=== PATIENT | female | born 1995 | race Caucasian/White ===

== ENCOUNTER 2019-07-26 09:42 | Emergency (ER) | payer OTHER, SELFPAY ==
[2019-07-26 09:49] VITALS: BP 105/70; PULSE 16; RESP 16; TEMP 36.4; O2SAT 98
--- NOTE | 2019-07-26 10:19 | ED.EAR ---
HPI - Ear Problem General Chief complaint: Ear Stated complaint: PAIN TO BACK OF EAR/JAW PAIN Time Seen by Provider: 07/26/19 10:20 Source: patient and RN notes reviewed Mode of arrival: ambulatory Limitations: no limitations History of Present Illness HPI Narrative: 24 old female presents with concern for 1 day history of left ear pain that occasionally radiates down her jaw. Reports taking Advil that improves the pain. Denies any trauma, injury. Reports recent runny nose, nasal congestion. Denies decreased hearing, discharge from the ear MD Complaint: ear pain Related Data Allergies Allergy/AdvReac Type Severity Reaction Status Date / Time No Known Allergies Allergy Unverified 04/24/11 18:06 Review of Systems Review of Systems: Narrative: CONSTITUTIONAL: Denies malaise, chills, sweats, or fever. EYES: Denies visual changes, redness, or discharge. ENT: Denies rhinorrhea, congestion, sinus pain, or sore throat. Reports left ear pain radiating to the jaw. Denies popping or clicking of the jaw, pain with chewing CARDIOVASCULAR: Denies chest pain, palpitations RESPIRATORY: Denies cough or dyspnea. SKIN: Denies rash or itching. NEUROLOGIC: Denies numbness, weakness, or headache. All systems reviewed & are unremarkable except as noted in HPI and below PMFSH Comments At time of signature, agree with nursing past medical, surgical, social and family history. There is no relevant family history pertinent to the presenting complaint Exam Narrative: Exam Narrative: GENERAL: Well-appearing, well-nourished, and in no acute distress. HEAD: Normocephalic EYES: PERRLA, conjunctivae clear ENT: Nares clear, turbinates erythematous, clear discharge. Mucous membranes moist. TM pearly gibbs with dull light reflex bilaterally; no tragal tenderness. Oropharynx not erythematous without lesions. Tonsils not enlarged and without exudate, no drooling, no hoarseness, no trismus. NECK: Supple. No lymphadenopathy CHEST: Clear to auscultation, breath sounds equal. No wheezing, rhonchi, rales, or stridor. No respiratory distress, speaks in full sentences. HEART: Regular rate and rhythm. No murmur heard. Normal peripheral pulses. SKIN: Warm, dry, no rash. NEURO: Alert and oriented x3. PSYCH: Normal mood and affect Course Course Emergency Course: Patient is aware of diagnosis, understands and agrees to treatment plan. Anticipatory guidance given. Patient agrees to follow-up as directed and is aware of reasons to seek care at the emergency department. Portions of this record may have been created with voice recognition software Vital Signs Vital signs: Vital Signs Temperature 97.6 F 07/26/19 09:49 Pulse Rate 16 L 07/26/19 09:49 Respiratory Rate 16 07/26/19 09:49 Blood Pressure 105/70 07/26/19 09:49 Pulse Oximetry 98 07/26/19 09:49 Temperature 97.6 F 07/26/19 09:49 Pulse Rate 16 L 07/26/19 09:49 Respiratory Rate 16 07/26/19 09:49 Blood Pressure 105/70 07/26/19 09:49 Pulse Oximetry 98 07/26/19 09:49 Reviewed. Medical Decision Making MDM Narrative Medical decision making narrative: Differential diagnosis considered: TMJ, lymphadenopathy, strep pharyngitis, allergic rhinitis, upper respiratory tract infection, sinusitis, rhinosinusitis, nasopharyngitis. viral pharyngitis, otitis media, otitis externa, pneumonia, bronchitis, viral cough syndrome, viral syndrome, and influenza. Exam findings show no acute concerns or changes; patient is non-toxic appearing and is in no distress. Patient is appropriate for outpatient treatment and follow-up. Vital Signs Vital Signs: Vital Signs Temperature 97.6 F 07/26/19 09:49 Pulse Rate 16 L 07/26/19 09:49 Respiratory Rate 16 07/26/19 09:49 Blood Pressure 105/70 07/26/19 09:49 Pulse Oximetry 98 07/26/19 09:49 Temperature 97.6 F 07/26/19 09:49 Pulse Rate 16 L 07/26/19 09:49 Respiratory Rate 16 07/26/19 09:49 Blood Pressure 105/70 07/26/19 09:49
== END 2019-07-26 10:30 | disposition home or self-care (01) ==
PROVIDERS: Emergency Provider Nurse Practitioner; PCP Family Medicine
DX: H92.02 Otalgia, left ear (principal)
CPT/HCPCS: 99203; G0463

== ENCOUNTER 2019-08-10 14:16 | Emergency (ER) | payer OTHER, SELFPAY ==
[2019-08-10 14:28] VITALS: BP 116/74; PULSE 78; RESP 20; TEMP 36.5; O2SAT 99
--- NOTE | 2019-08-10 15:10 | ED.GENADULT ---
HPI - General Adult General Chief complaint: Ear Stated complaint: Ear pain Time Seen by Provider: 08/10/19 15:10 Source: patient and RN notes reviewed Mode of arrival: ambulatory Limitations: no limitations History of Present Illness HPI narrative: 24-year-old female presents with complaints of right ear itching and pain for 1 day. [id number] ear pain drops and Ibuprofen without relief. Pam says about 18:00 last night she had a ripping sound in RT ear and approximately 2 hours later start having pain. Denies drainage from RT ear, swimming, or getting water into ear. Denies trouble hearing. Denies URI symptoms. No high fevers or chills. Denies injury to the ear. No nasal drainage and congestion. Denies nausea, vomiting, tinnitus, syncopal episodes, and dizziness. Remains active. Pam denies being , LMP 2 weeks ago. Some parts of this dictation were generated by voice recognition software and may contain typographical and/or grammatical inaccuracies. Related Data Home Medications Medication Instructions Recorded Confirmed ibuprofen 200 mg PO Q6H PRN 08/10/19 08/10/19 Allergies Allergy/AdvReac Type Severity Reaction Status Date / Time No Known Allergies Allergy Verified 08/10/19 14:32 Review of Systems Review of Systems: Narrative: CONSTITUTIONAL: Denies fever, chills, sweats. EYES: Denies visual changes, redness, discharge. ENT: Denies rhinorrhea, congestion, sore throat, drainage. Complains of RT otalgia, itching. CARDIOVASCULAR: Denies chest pain, palpitations, edema. RESPIRATORY: Denies dyspnea, wheezing, cough. GASTROINTESTINAL: Denies abdominal pain, nausea, vomiting, diarrhea. GENITOURINARY: Denies dysuria, hematuria, abnormal discharge. SKIN: Denies rash or itching. MUSCULOSKELETAL: Denies acute back pain, joint pain, or myalgia. NEUROLOGIC: Denies numbness or focal weakness. PSYCHIATRIC: Denies anxiety or depression. All systems reviewed & are unremarkable except as noted in HPI and below. [facility] Past Medical History Medical History (Updated 08/11/19 @ 00:01 by Shanta Duffy) No significant medical problems Surgical History Surgical History (Updated 08/10/19 @ 15:21 by MONCHO Ortiz) No significant past surgical history Family History Family History (Updated 08/10/19 @ 15:22 by MONCHO Ortiz) Father Hypertension Mother Hypertension Social History Social History (Updated 08/10/19 @ 15:22 by MONCHO Ortiz) Smoking status: Never smoker Second hand tobacco smoke exposure: No Alcohol intake: never Substance use: never Living arrangements: with family Occupation/Education: occupation Gender identity (if verbalized by the patient): Female Comments At time of signature, I have reviewed and agree with nursing past medical, surgical, social, and family history. Please see nursing chart for further information. There is no relevant family history pertinent to the presenting complaint. Exam Narrative: Exam Narrative: GENERAL: This is a well-nourished, well-developed patient, in no apparent distress. Talks in full sentences and ambulates with steady gait without dyspnea HEAD: normocephalic, atraumatic. EYES: PERRL. Sclera clear/white. Vision is grossly intact. EARS: Pinna is normal shape and contour. RT ear with moderate erythema and swelling canal with moderate yellow purulent discharge and tenderness with manipulation. Clear external auditory canals. LT TM pearly keller with good cone of light, no erythema or suppuration, unable to visualize RT due to swelling and drainage. No gross hearing deficit. NOSE: External nose normal with no obvious nasal discharge, nares with mild redness and enlarge turbinates, no rhinorrhea. THROAT: Mucous membranes moist, posterior pharynx clear. NECK: Neck supple, non-tender without lymphadenopathy, masses or thyromegaly. CARDIOVASCULAR: Regular rate and rhythm without murmurs, gallops, or r
== END 2019-08-10 15:30 | disposition home or self-care (01) ==
PROVIDERS: Emergency Provider Nurse Practitioner Family; PCP Family Medicine
DX: H60.501 Unspecified acute noninfective otitis externa, right ear (principal)
CPT/HCPCS: 99213; G0463

== ENCOUNTER 2019-12-02 16:25 | Emergency (ER) | payer OTHER, SELFPAY ==
--- NOTE | ~2019-12-02 | CT_ITS ---
EXAMINATION: CT facial bones w con DATE: 12/02/2019 17:26 INDICATION: Right jaw swelling TECHNIQUE: Computed tomography (CT) of the facial bones and maxillofacial region was performed with 7 5 cc of Omnipaque 350 intravenous contrast intravenous contrast. The dose-length product (DLP) was 37 2.36 mGy-cm. Automated exposure control and iterative reconstruction technique were employed. COMPARISON: None. FINDINGS: There is soft tissue swelling of the right face adjacent to the mandible. There is mild inc rease in size of the right submandibular gland compared to the left. Also seen is slight increase in size of nonpathologically enlarged right submandibular lymph nodes compared to the left. No focal flu id collection or phlegmon is identified. The vascular structures are unremarkable. No facial bone fra cture is identified. There are dental caries of the bilateral first mandibular molars. The airway is patent. Three cysts noted bilaterally in the globes. IMPRESSION: 1. Asymmetric right facial soft tissue swelling near the mandible, without evidence of abscess or phl egmon, possibly related to cavity of the first molar. Reviewed, dictated and finalized at location A. IMPRESSION: 1. Asymmetric right facial soft tissue swelling near the mandible, without evid ence of abscess or phlegmon, possibly related to cavity of the first molar.
[2019-12-02 16:35] VITALS: BP 140/74; PULSE 80; RESP 18; TEMP 36.8; O2SAT 98
--- NOTE | 2019-12-02 16:42 | ED.GENADULT ---
HPI - General Adult General Chief complaint: Dental/Oral Stated complaint: swelling to right lower jaw Time Seen by Provider: 12/02/19 16:37 Source: patient Mode of arrival: ambulatory Limitations: no limitations History of Present Illness HPI narrative: 24-year-old female patient presents to the [facility] with complaints of dental pain to the right side. Patient states that swelling started this morning when she woke up. Patient states she has been having issues with some bad teeth for couple months now and is having difficulty finding a dentist/oral surgeon to see. Patient states that she has been taking Tylenol for the pain which has helped. Patient rates her pain 5 out of 10 at this time. Denies any fevers that she is aware of. Denies any chest pain or shortness of breath. Patient denies any or breast-feeding at this time. Related Data Allergies Allergy/AdvReac Type Severity Reaction Status Date / Time No Known Allergies Allergy Verified 12/02/19 16:39 Review of Systems Review of Systems: Narrative: CONSTITUTIONAL: Denies fever, chills, or sweats. EYES: Denies visual changes, redness, or discharge. ENT: Denies rhinorrhea, congestion, sore throat, or otalgia. Positive swelling to right jaw and cheek area since this morning CARDIOVASCULAR: Denies chest pain, palpitations, or edema. RESPIRATORY: Denies cough or dyspnea. GASTROINTESTINAL: Denies abdominal pain, nausea, vomiting, or diarrhea. GENITOURINARY: Denies dysuria or hematuria. SKIN: Denies rash or itching. MUSCULOSKELETAL: Denies back pain, joint pain, or myalgia. NEUROLOGIC: Denies headache, numbness, or weakness. PSYCHIATRIC: Denies anxiety or depression. [facility] Past Medical History Medical History No significant medical problems Surgical History Surgical History No significant past surgical history Family History Family History Father Hypertension Mother Hypertension Social History Social History Smoking status: Never smoker Second hand tobacco smoke exposure: No Alcohol intake: never Substance use: never Gender identity (if verbalized by the patient): Female Comments At the time of my signature I agree with nursing past medical history, surgical, social, and family history. There is no relevant family history pertinent to the presenting complaint. Exam Narrative: Exam Narrative: GENERAL: Well-appearing, well-nourished, and in no acute distress. HEAD: Normocephalic, atraumatic. EYES: PERRLA and EOMI. ENT: Nares clear, no rhinorrhea or epistaxis. Mucous membranes moist. Patient has swelling noted to the right mandibular area with warmth noted and erythema. There is a broken tooth noted to the lower right molar. There is erythema noted to the gum and palpitation of hardness possible abscess area into the soft tissue area. NECK: Supple. No lymphadenopathy CHEST: Clear to auscultation. No respiratory distress. HEART: Regular rate and rhythm. No murmur heard. Normal peripheral pulses. ABDOMEN: Soft, nontender, nondistended, normal active bowel sounds. EXTREMITIES: Normal range of motion. No edema. SKIN: Warm, dry, no rash. NEURO: No focal deficits. Alert and oriented x3. Course Reevaluation(s) Reevaluation #1: Reevaluated patient after her CT. Discussed with her that the CT does not show any evidence of osteomyelitis to the jaw or an abscess. Discussed with her this most likely swelling due to the infection in the tooth. Discussed with her we will discharge her home with antibiotics and give her dose of antibiotics before she leaves. Discussed with her I will also give her some tramadol to help with the pain. Discussed with her we will give her resources for follow-up of dental clinics. Patient is aware the p
[2019-12-02 17:08] LABS: Basophils Absolute Auto 0.1 K/mm3 (0.0-0.1); Basophils Percent Auto 0.5 % (0.2-1.2); Eosinophils Percent Auto 0.3 % (0-4.4); Hematocrit 41.9 % (37.0-47.0); Hemoglobin 14.1 g/dL (12.0-15.0); Immature Granulocyte Absolute 0.01 K/mm3 (0.00-0.031); Immature Granulocyte Percent A 0.1 % (0-0.5); Lymphocytes Percent Auto 25.3 % (18.3-44.2); Mean Corpuscular HGB Conc 33.7 g/dl (32-36); Mean Corpuscular Hemoglobin 28.4 pg (26-34); Mean Corpuscular Volume 84.5 fl (80-100); Mean Platelet Volume 11.1 fl (7.4-10.4); Monocytes Absolute Auto 0.5 K/mm3 (0.1-0.6); Monocytes Percent Auto 4.7 % (2.6-8.5); Neutrophils Absolute Auto 6.6 K/mm3 (1.3-6.7); Neutrophils Percent Auto 69.1 % (45.5-73.1); Platelet Count Result 195 k/mm3 (150-375); Red Blood Count 4.96 M/mm3 (4.2-5.4); Red Cell Distribution Width 12.4 % (11.5-14.5); White Blood Count 9.5 K/mm3 (4.5-10.0)
[2019-12-02] MEDS: KETOROLAC 30 MG/ML VIAL (*BKC) IV PUSH (17:12)
[2019-12-02] MEDS: SODIUM CHLORIDE 0.9% IV 1,000 ML 999 ML IV CONT (17:12)
[2019-12-02 17:20] LABS: Alanine Aminotransferase 17 U/L (4-35); Albumin Level 4.6 g/dL (3.5-5.1); Alkaline Phosphatase 64 U/L (38-126); Aspartate Amino Transferase 23 U/L (14-36); Bilirubin,Total 0.3 mg/dL (0.2-1.3); Blood Urea Nitrogen 9 mg/dL (7-17); Calcium 8.9 mg/dL (8.4-10.2); Carbon Dioxide 24 mmol/L (22-30); Chloride 106 mmol/L (98-107); Estimated CRCL calculation 143 ml/min; Estimated Glomerular Filt Rate > 60; Glucose 87 mg/dL (65-105); Potassium 3.6 mmol/L (3.4-5.0); Sodium 139 mmol/L (137-145)
[2019-12-02 17:22] LABS: Estimated CRCL calculation 143 ml/min; Estimated Glomerular Filt Rate > 60
[2019-12-02 17:55] VITALS: BP 130/60; PULSE 74; RESP 18; O2SAT 100
[2019-12-02] MEDS: AMOXICILLIN/CLAVULANATE K 875-125 MG TAB 1 TABLET PO (18:25)
== END 2019-12-02 18:30 | disposition home or self-care (01) ==
PROVIDERS: Emergency Provider Nurse Practitioner Family; PCP Family Medicine
DX: K02.9 Dental caries, unspecified (principal); R03.0 Elevated blood-pressure reading, without diagnosis of hypertension
CPT/HCPCS: 36415; 70487; 80053; 85025; 96361; 96374; 99284; A9270; J1885; J7030; Q9967

== ENCOUNTER 2020-12-23 15:39 | Emergency (ER) | payer OTHER, SELFPAY ==
--- NOTE | ~2020-12-23 | XR_ITS ---
XR ankle LT min 3V DATE: 12/23/2020 15:54 INDICATION: Fall down 4-5 steps. Lateral ankle pain. TECHNIQUE: 4 views COMPARISON: None FINDINGS: Mild plantar and posterior calcaneal enthesopathy. No fracture or dislocation of the ankle or disruption of the ankle mortise. No periosteal reaction or bone destruction. IMPRESSION: No fracture or dislocation Reviewed, dictated and finalized at location A. IMPRESSION: No fracture or dislocation
[2020-12-23 15:41] VITALS: BP 124/69; PULSE 79; RESP 16; TEMP 37.1; O2SAT 99
[2020-12-23 16:41] VITALS: BP 109/69; PULSE 82; RESP 16; O2SAT 97
--- NOTE | 2020-12-23 17:32 | ED.LOWEXIN ---
HPI - Extremity Injury (Lower) General Chief Complaint: Extremity Injury, Lower Stated Complaint: left ankle injury Time Seen by Provider: 12/23/20 16:41 Source: patient Mode of arrival: ambulatory Limitations: no limitations History of Present Illness HPI Narrative: Patient is a 25 year old female who reports she slipped down multiple steps this afternoon, injuring left ankle. She denies fall, denies all other complaints. Mild swelling noted at left ankle. Patient ambulates without assistance. She denies significant medical history, denies taking otc medications prior to arrival. MD complaint: leg injury Related Data Allergies Allergy/AdvReac Type Severity Reaction Status Date / Time No Known Allergies Allergy Verified 12/02/19 16:39 Review of Systems Review of Systems: Narrative: CONSTITUTIONAL: Denies fever, chills, or sweats. EYES: Denies visual changes, redness, or discharge. ENT: Denies rhinorrhea, congestion, sore throat, or otalgia. CARDIOVASCULAR: Denies chest pain, palpitations, or edema. RESPIRATORY: Denies cough or dyspnea. GASTROINTESTINAL: Denies abdominal pain, nausea, vomiting, or diarrhea. GENITOURINARY: Denies dysuria or hematuria. SKIN: Denies rash or itching. MUSCULOSKELETAL: Reports left ankle pain NEUROLOGIC: Denies headache, numbness, dizziness, or weakness. PSYCHIATRIC: Denies anxiety or depression. PMFSH Past Medical History Medical History (Updated 12/23/20 @ 17:40 by MONCHO Valdovinos) No significant medical problems Surgical History Surgical History No significant past surgical history Family History Family History Father Hypertension Mother Hypertension Social History Social History Smoking status: Never smoker Second hand tobacco smoke exposure: No Alcohol intake: never Substance use: never Gender identity (if verbalized by the patient): Female Comments At the time of signature, I have reviewed and agree with nursing past medical, surgical, social, and family history unless otherwise noted. Please see nursing chart for further information. There is no relevant family history pertinent to the presenting complaint. Exam Narrative: Exam Narrative: GENERAL: Well-appearing, well-nourished, and in no acute distress. HEAD: Normocephalic, atraumatic. EYES: EOMI. No redness or drainage. Conjunctiva are normal. ENT: Mucous membranes pink and moist. CHEST: No respiratory distress. HEART: Regular rate and rhythm. EXTREMITIES: Normal range of motion. Edema noted to left lateral ankle, tenderness with palpation, good capillary refill, distal sensation intact, good pedal pulse. SKIN: Warm, dry, no rash. NEURO: No focal deficits. Alert and oriented x3. Gait steady. PSYCH: Normal affect. No signs of depression or anxiety. Course Vital Signs Vital signs: Vital Signs Temperature 37.1 C 12/23/20 15:41 Pulse Rate 79 12/23/20 15:41 Respiratory Rate 16 12/23/20 15:41 Blood Pressure 124/69 12/23/20 15:41 Pulse Oximetry 99 12/23/20 15:41 Temperature 37.1 C 12/23/20 15:41 Pulse Rate 82 12/23/20 16:41 Respiratory Rate 16 12/23/20 16:41 Blood Pressure 109/69 12/23/20 16:41 Pulse Oximetry 97 12/23/20 16:41 Reviewed MDM - Extremity Injury (Lower) MDM Narrative Medical decision making narrative: Patient's x-ray shows no acute osseous injury. Discussed with patient most likely soft tissue swelling. Discussed use of an Godwin wrap as well as rest, ice and elevation. Discussed pain medication and follow-up care. Patient agrees with plan of care. Patient is stable for discharge home with outpatient follow-up as needed. Differential Diagnosis Differential diagnosis: Likely ankle sprain and strain and other (Sprain, strain, fracture, contusion) Imaging Data Radiologist's impressio
== END 2020-12-23 18:10 | disposition home or self-care (01) ==
PROVIDERS: Emergency Provider Nurse Practitioner; PCP Family Medicine
DX: S93.402A Sprain of unspecified ligament of left ankle, initial encounter (principal); W10.9XXA Fall (on) (from) unspecified stairs and steps, initial encounter
CPT/HCPCS: 73610; 99283

== ENCOUNTER 2021-03-23 09:29 | Emergency (ER) | payer OTHER, SELFPAY ==
[2021-03-23 09:33] VITALS: BP 137/88; PULSE 84; RESP 18; TEMP 36.1; O2SAT 99
--- NOTE | 2021-03-23 10:22 | ED.DENTAL ---
HPI - Dental/Oral General Chief complaint: Dental/Oral Stated complaint: dental pain, swelling Time Seen by Provider: 03/23/21 09:59 Source: patient History of Present Illness HPI Narrative: Patient presents with dental pain and facial swelling. First is a dental pain for the past couple days seen in urgent care yesterday started on antibiotics. This morning she woke up and noted facial swelling she was concerned so came to the ER for evaluation. She denies any fevers chills nausea vomiting. She denies any difficulty with swallowing globus sensation or shortness of breath. Teeth map: 1. Related Data Allergies Allergy/AdvReac Type Severity Reaction Status Date / Time No Known Allergies Allergy Verified 03/23/21 09:46 Review of Systems Review of Systems: CONSTITUTIONAL: Denies fever, chills, or sweats. EYES: Denies visual changes, redness, or discharge. ENT: Denies rhinorrhea, congestion, sore throat, or otalgia. CARDIOVASCULAR: Denies chest pain, palpitations, or edema. RESPIRATORY: Denies cough or dyspnea. GASTROINTESTINAL: Denies abdominal pain, nausea, vomiting, or diarrhea. GENITOURINARY: Denies dysuria or hematuria. SKIN: Denies rash or itching. MUSCULOSKELETAL: Denies back pain, joint pain, or myalgia. NEUROLOGIC: Denies headache, numbness, dizziness, or weakness. PSYCHIATRIC: Denies anxiety or depression. All systems reviewed & are unremarkable except as noted in HPI and below PMFSH Past Medical History Medical History (Updated 03/23/21 @ 10:26 by Sean Walton MD) No significant medical problems Surgical History Surgical History No significant past surgical history Family History Family History Father Hypertension Mother Hypertension Social History Social History Smoking status: Never smoker Second hand tobacco smoke exposure: No Alcohol intake: never Substance use: never Gender identity (if verbalized by the patient): Female Exam Narrative: GENERAL: Well-appearing, well-nourished, and in no acute distress. HEAD: Normocephalic, atraumatic. EYES: PERRLA and EOMI. ENT: Nares clear, no rhinorrhea or epistaxis. Mucous membranes moist. Right lower jaw swelling with mild erythema no focal fluid collections or areas of fluctuance. There is a fractured tooth #30 NECK: Supple. No masses. No JVD CHEST: Clear to auscultation. No respiratory distress. No wheezes rales or rhonchi HEART: Regular rate and rhythm. No murmur heard. Normal peripheral pulses. EXTREMITIES: Normal range of motion. No edema. SKIN: Warm, dry, no rash. NEURO: No focal deficits. Alert and oriented x3. PSYCH: Normal mood and affect. Course Vital Signs Vital signs: Vital Signs Temperature 36.1 C L 03/23/21 09:33 Pulse Rate 84 03/23/21 09:33 Respiratory Rate 18 03/23/21 09:33 Blood Pressure 137/88 03/23/21 09:33 Pulse Oximetry 99 03/23/21 09:33 Temperature 36.1 C L 03/23/21 09:33 Pulse Rate 84 03/23/21 09:33 Respiratory Rate 18 03/23/21 09:33 Blood Pressure 137/88 03/23/21 09:33 Pulse Oximetry 99 03/23/21 09:33 MDM - Dental/Oral MDM Narrative Medical decision making narrative: H&P as above, vss, pt looks clinically well, exam facial swelling erythema and poor dentition, labs/img considered, symptomatic relief available as needed, on reevaluation pt continues to looks clinically well. Suspect dental abscess patient is already on appropriate antibiotics and has yet to have 24 hours worth of therapy patient instructed to continue her antibiotics and follow-up with a dentist she was given a list of Medicaid providers that she reports she has time affording dental care. dns severe sepsis, severe dehydration, airway compromise. return precautions given Discharge Plan Discharge Clinical Impression: Abscess, dental
== END 2021-03-23 10:48 | disposition home or self-care (01) ==
PROVIDERS: Emergency Provider Emergency Medicine; PCP Family Medicine
DX: K04.7 Periapical abscess without sinus (principal)
CPT/HCPCS: 99281

== ENCOUNTER 2022-07-05 13:20 | Emergency (ER) | payer OTHER, SELFPAY ==
[2022-07-05 13:23] VITALS: BP 124/69; PULSE 80; RESP 20; TEMP 36.8; O2SAT 100
--- NOTE | 2022-07-05 13:28 | ED.URI ---
HPI - URI/Sore Throat General Chief Complaint: Upper Respiratory Infection Stated Complaint: sore throat Time Seen by Provider: 07/05/22 13:44 Source: patient and RN notes reviewed Mode of arrival: ambulatory Limitations: no limitations History of Present Illness HPI Narrative: 27-year-old female presents concern for sore throat that started 2 days ago. She also reports nausea, cough, rhinorrhea. She denies nasal congestion, headache, fever, aches, chills, sweats. Reports she has been using throat lozenges MD elicited complaint: sore throat Related Data Home Medications Medication Instructions Recorded Confirmed buspirone 5 mg tablet 5 mg PO DIRECTED 07/05/22 07/05/22 dextroamphetamine-amphetamine ER 20 mg PO DIRECTED 07/05/22 07/05/22 20 mg 24hr capsule,extend release Allergies Allergy/AdvReac Type Severity Reaction Status Date / Time No Known Allergies Allergy Verified 07/05/22 13:41 Review of Systems Review of Systems: CONSTITUTIONAL: Denies malaise, chills, sweats, or fever. EYES: Denies visual changes, redness, or discharge. ENT: Reports congestion, sinus pain, otalgia. Reports rhinorrhea and sore throat. CARDIOVASCULAR: Denies chest pain, palpitations, or edema. RESPIRATORY: Reports cough. Denies dyspnea. GASTROINTESTINAL: Denies abdominal pain, vomiting, diarrhea. Reports nausea SKIN: Denies rash or itching. MUSCULOSKELETAL: Denies myalgia. NEUROLOGIC: Denies headache. All systems reviewed & are unremarkable except as noted in HPI and below PMFSH Past Medical History Medical History (Updated 07/05/22 @ 13:48 by Delores Moncada NP) No significant medical problems Surgical History Surgical History No significant past surgical history Family History Family History Father Hypertension Mother Hypertension Social History Social History Smoking status: Never smoker Second hand tobacco smoke exposure: No Alcohol intake: never Substance use: never Living arrangements: with family Occupation/Education: occupation Gender identity (if verbalized by the patient): Female Comments At time of signature, agree with nursing past medical, surgical, social and family history. There is no relevant family history pertinent to the presenting complaint Exam Narrative: GENERAL: Well-appearing, well-nourished, and in no acute distress. HEAD: Normocephalic EYES: PERRLA, conjunctivae clear ENT: Nares clear, clear discharge. Mucous membranes moist. TM pearly gibbs with dull light reflex bilaterally; no tragal tenderness. Oropharynx erythematous without lesions. Tonsils not enlarged and without exudate, no drooling, no hoarseness, no trismus, uvula midline. NECK: Supple. No lymphadenopathy CHEST: Clear to auscultation, breath sounds equal. No wheezing, rhonchi, rales, or stridor. No respiratory distress, speaks in full sentences. HEART: Regular rate and rhythm. No murmur heard. SKIN: Warm, dry, no rash. NEURO: Alert and oriented x3. PSYCH: Normal mood and affect Course Course Emergency Course: Patient is aware of diagnosis, understands and agrees to treatment plan. Anticipatory guidance given. Patient agrees to follow-up as directed and is aware of reasons to seek care at the emergency department. Portions of this record may have been created with voice recognition software Level of Care: Express Care Visit Vital Signs Vital signs: Reviewed. MDM - URI/Sore Throat MDM Narrative Medical decision making narrative: Differential diagnosis considered: Kiser virus, strep pharyngitis, allergic rhinitis, upper respiratory tract infection, sinusitis, rhinosinusitis, nasopharyngitis. viral pharyngitis, otitis media, otitis externa, pneumonia, bronchitis, viral cough syndrome, viral syndrome, and influenza. Exam findings
== END 2022-07-05 13:50 | disposition home or self-care (01) ==
PROVIDERS: Emergency Provider Nurse Practitioner; PCP Physician Assistant
DX: J02.0 Streptococcal pharyngitis (principal); F41.9 Anxiety disorder, unspecified; F98.8 Other specified behavioral and emotional disorders with onset usually occurring in childhood and adolescence
CPT/HCPCS: 87880; 99213; G0463

== ENCOUNTER 2023-07-20 05:33 | Emergency (ER) | payer OTHER, SELFPAY ==
--- NOTE | ~2023-07-20 | CT_ITS ---
CT of the Abdomen and Pelvis: Indication: Abdominal pain Technique: 2.5 mm axial scans were obtained through the abdomen and pelvis following intravenous adm inistration of 100 cc of Omnipaque 350. Dose reduction technique was used on this scan by utilizing a utomated exposure control and iterative reconstruction technique. The dose-length product (DLP) was 1 147.83 mGy-cm. Findings: Scans through the lung bases are unremarkable. The liver, spleen, pancreas, gallbladder, adrenals and kidneys are within normal limits. No evidence of aortic aneurysm. No lymphadenopathy. No bowel obstruction or bowel wall thickening. There is no evidence to suggest acute appendicitis. Images through the pelvis were performed. 2 mm urinary bladder stone present. No pelvic mass seen. Tr alyssa free fluid noted in the pelvis. Impression: 2 mm urinary bladder stone. No other significant findings. Reviewed, dictated and finalized at [facility]. [employer] Impression: 2 mm urinary bladder stone. No other significant findings.
[2023-07-20 06:08] LABS: Basophils Percent Auto 0.5 % (0.2-1.2); Eosinophils Absolute Auto 0.1 K/mm3 (0-0.3); Eosinophils Percent Auto 0.7 % (0-4.4); Hematocrit 40.2 % (37.0-47.0); Hemoglobin 13.4 g/dL (12.0-15.0); Immature Granulocyte Absolute 0.02 K/mm3 (0.00-0.031); Immature Granulocyte Percent A 0.2 % (0-0.5); Lymphocytes Absolute Auto 2.85 K/mm3 (0.9-3.2); Lymphocytes Percent Auto 33.8 % (18.3-44.2); Mean Corpuscular HGB Conc 33.3 g/dl (32-36); Mean Corpuscular Volume 84.1 fl (80-100); Mean Platelet Volume 11.2 fl (7.4-10.4); Monocytes Absolute Auto 0.4 K/mm3 (0.1-0.6); Neutrophils Percent Auto 59.8 % (45.5-73.1); Platelet Count Result 194 k/mm3 (150-375); Red Blood Count 4.78 M/mm3 (4.2-5.4); Red Cell Distribution Width 12.2 % (11.5-14.5); White Blood Count 8.4 K/mm3 (4.5-10.0)
[2023-07-20 06:19] LABS: Alanine Aminotransferase 23 U/L (6-35); Albumin Level 4.2 g/dL (3.5-5.1); Alkaline Phosphatase 73 U/L (38-126); Anion Gap 8 mmol/L (8-16); Aspartate Amino Transferase 29 U/L (14-36); Bilirubin,Total 0.3 mg/dL (0.2-1.3); Blood Urea Nitrogen 12 mg/dL (7-17); Calcium 8.9 mg/dL (8.4-10.2); Carbon Dioxide 23 mmol/L (22-30); Chloride 107 mmol/L (98-107); Estimated CRCL calculation 130 ml/min; Estimated Glomerular Filt Rate > 60; Glucose 116 mg/dL (65-110); Lipase 80 U/L (23-300); Potassium 3.4 mmol/L (3.4-5.0); Sodium 138 mmol/L (137-145)
[2023-07-20 06:37] LABS: Appearance Urine Clear (Clear); Bacteria Urine None Seen /hpf; Bilirubin Urine Negative (Negative); Blood Urine 3+ (Negative); Calcium Oxalate Crystals Urine Present /hpf; Color Urine Yellow (Yellow); Glucose Urine UA Negative (Negative); Ketones Urine Trace mg/dL (Negative); Leukocyte Esterase Ur Negative LEU/UL (Negative); Mucus Urine Present /lpf; Nitrate Urine Negative (Negative); Protein Urine Negative (Negative); Specific Grav Ur 1.028 (1.001-1.035); Squamous Epithelial Cell Urine Occasional /hpf (Few); Urobilinogen Urine 0.2 mg/dL (<2.0); WBC Urine 0-5 /hpf
[2023-07-20 06:38] LABS: Add Urine Microscopic? YES
--- NOTE | 2023-07-20 07:23 | PC.NURSE ---
Assumed care of pt.
[2023-07-20 07:26] VITALS: BP 109/70; PULSE 73; RESP 16; TEMP 36.7; O2SAT 100
--- NOTE | 2023-07-20 07:29 | ED.ABDPAIN ---
HPI - Abdominal Pain General Chief Complaint: Abdominal Pain Stated Complaint: LLQ pain Time Seen by Provider: 07/20/23 07:04 History of Present Illness HPI narrative: Patient is a 28-year-old female who presents to the emergency department this morning complaining of left-sided abdominal pain. Patient states the pain woke her up from sleep around 4:00 a.m. and is localized to the left upper quadrant and left mid abdomen. Patient states the pain does not radiate to her left flank or left lower quadrant. She denies any history of kidney stones and denies any similar symptoms in the past. Patient denies any associated nausea or vomiting, denies any constipation or diarrhea diarrhea associated with the pain. Patient denies any sick contacts at home. Patient denies any additional symptoms including chest pain, shortness of breath, dysuria, hematuria, melena, hematochezia, fevers or chills. Patient also denies any headaches, dizziness, lightheadedness, blurry visions, focal weakness, numbness and or tingling. There are no other modifying, alleviating, or precipitating factors at this time. Related Data Home Medications Medication Instructions Recorded Confirmed buspirone 5 mg tablet 5 mg PO DIRECTED 07/05/22 07/05/22 dextroamphetamine-amphetamine ER 20 mg PO DIRECTED 07/05/22 07/05/22 20 mg 24hr capsule,extend release Allergies Allergy/AdvReac Type Severity Reaction Status Date / Time No Known Allergies Allergy Verified 07/20/23 05:33 Review of Systems Review of Systems: All systems are reviewed and are negative unless stated otherwise in the HPI. [facility] Past Medical History Medical History (Updated 07/20/23 @ 08:12 by Yossi Sprague MD) No significant medical problems Surgical History Surgical History No significant past surgical history Family History Family History Father Hypertension Mother Hypertension Social History Social History Smoking status: Never smoker Second hand tobacco smoke exposure: No Alcohol intake: never Substance use: never Living arrangements: with family Occupation/Education: occupation Gender identity (if verbalized by the patient): Female Comments Patient denies any significant past medical or surgical history. Exam Narrative: General: Alert, awake, afebrile, in no acute distress. HEENT: PERRL, no rhinorrhea, no post nasal drip, oropharynx clear. Neck: Trachea midline, no JVD, no lymphadenopathy. Cardiovascular: Regular rate and rhythm, no murmurs, rubs or gallops, no peripheral edema. Respiratory: Clear to auscultation bilaterally, no tachypnea, no wheezing, no rhonchi, no rubs, no respiratory distress. Abdomen: Soft, tenderness to palpation over the left upper quadrant, nondistended, no rebound, no guarding, no peritoneal signs. Musculoskeletal: No joint swelling or deformity, normal muscle tone. Skin: No rashes or petechia, no signs of infection. Psychiatric: Alert and oriented, normal behavior and judgment for situation. Neurological: Alert and oriented to person, place, and time. Follows all commands. No focal deficits, speech is clear and fluent. Course Vital Signs Vital signs: Vital Signs Temperature 98.1 F 07/20/23 07:26 Pulse Rate 73 07/20/23 07:26 Respiratory Rate 16 07/20/23 07:26 Blood Pressure 109/70 07/20/23 07:26 Pulse Oximetry 100 07/20/23 07:26 Temperature 98.1 F 07/20/23 07:26 Pulse Rate 73 07/20/23 07:26 Respiratory Rate 16 07/20/23 07:26 Blood Pressure 109/70 07/20/23 07:26 Pulse Oximetry 100 07/20/23 07:26 MDM - Abdominal Pain MDM Narrative Medical decision making narrative: The patient was evaluated by myself in the emergency department. History is obtained from patient who is an independent historian and
[2023-07-20] MEDS: KETOROLAC 15 MG/ML VIAL (*BKC) IV PUSH (08:22)
[2023-07-20 08:50] VITALS: BP 107/53; PULSE 76; RESP 18; TEMP 36.8; O2SAT 100
== END 2023-07-20 08:56 | disposition home or self-care (01) ==
PROVIDERS: Emergency Medicine; Emergency Provider Emergency Medicine; PCP Physician Assistant
DX: N20.0 Calculus of kidney (principal)
CPT/HCPCS: 36415; 74177; 80053; 81001; 81025; 83690; 85025; 96374; 99284; J1885; Q9967

== ENCOUNTER 2024-08-09 10:13 | Emergency (ER) | payer OTHER, SELFPAY ==
[2024-08-09 10:22] VITALS: BP 116/74; PULSE 81; RESP 16; TEMP 36.8; O2SAT 100
--- NOTE | 2024-08-09 10:28 | ED.EAR ---
HPI - Ear Problem General Chief complaint: Ear Stated complaint: EAR/HEAD/JAW PAIN Source: patient and RN notes reviewed Mode of arrival: ambulatory Limitations: no limitations History of Present Illness HPI Narrative: Patient is a 29-year-old female who presents to the [facility] with complaints of left ear pain. Patient states that she has had left ear pain for the past week. The pain worsened in severity this morning. She states that the pain now radiates down the left side of her face. She states that she is prone to ear infections. Denies ear drainage. Denies recent fevers. Patient also states that she does have a dental catina on the left side that needs dental work so she is unsure whether or not that is related. She denies trouble swallowing or trismus. Related Data Home Medications ?Medication ?Instructions ?Recorded ?Confirmed ?Last Taken ?Type buspirone 5 mg tablet 5 mg PO DIRECTED 07/05/22 07/05/22 Unknown History dextroamphetamine-amphetamine ER 20 mg PO DIRECTED 07/05/22 07/05/22 Unknown History 20 mg 24hr capsule,extend release escitalopram oxalate 5 mg tablet mg 08/09/24 Unknown History Allergies Allergy/AdvReac Type Severity Reaction Status Date / Time No Known Allergies Allergy Verified 08/09/24 10:25 Review of Systems Review of Systems: CONSTITUTIONAL: Denies fever, chills, or sweats. EYES: Denies visual changes, redness, or discharge. ENT: Reports otalgia but denies sore throat CARDIOVASCULAR: Denies chest pain, palpitations, or edema. RESPIRATORY: Denies cough or dyspnea. GASTROINTESTINAL: Denies abdominal pain, nausea, vomiting, or diarrhea. GENITOURINARY: Denies dysuria or hematuria. SKIN: Denies rash or itching. MUSCULOSKELETAL: Denies back pain, joint pain, or myalgia. NEUROLOGIC: Denies headache, numbness, or weakness. Pertinent positives per HPI. [facility] Past Medical History Medical History (Updated 08/09/24 @ 10:30 by Lisa Santos APRN) No significant medical problems Surgical History Surgical History No significant past surgical history Family History Family History Father Hypertension Mother Hypertension Social History Social History Smoking status: Never smoker Second hand tobacco smoke exposure: No Alcohol intake: never Substance use: never Living arrangements: with family Occupation/Education: occupation Gender identity (if verbalized by the patient): Female Comments At the time of my signature, I reviewed and agree with the nursing past medical, surgical, social, and family history. There is no relevant family history pertinent to the patient complaint. Exam Narrative: GENERAL: This is a well-nourished, well-developed patient, in no apparent distress. HEAD: normocephalic, atraumatic. EYES: Sclera clear/white. Vision is grossly intact. EARS: External ears normal, auditory canals clear and without drainage. Right TM normal without perforation. Left TM erythamatous and bulging. Hearing grossly intact. NOSE: External nose normal with no obvious nasal discharge, nares without redness, no rhinorrhea. THROAT: Mucous membranes moist, posterior pharynx clear. NECK: Neck supple, non-tender without lymphadenopathy, masses or thyromegaly. CARDIOVASCULAR: Regular rate and rhythm without murmurs, gallops, or rubs. RESPIRATORY: Clear to auscultation. Breath sounds equal bilaterally. No wheezes, rales, or rhonchi. GASTROINTESTINAL: Abdomen soft, non-tender, nondistended. Bowel sounds are active. No hepato-splenomegaly, or palpable masses. No guarding. SKIN: warm, intact with no suspicious lesions or rash, good texture and turgor. NEURO: awake, alert, and oriented to person, place and time. There were no obvious focal neurologic abnormalities. Course Course Level of Care: Express Care Visit Vital Signs Vital signs: Vital Signs Temperature 98.2 F 08/09/24 10:22 Pulse Rate 81 08/09/24 10:22 Respiratory Rate 16 08/09/24 10:22 Blood Pressure 116/74 08/09/24 10:22 Pulse Oximetry 100 08/09/24 10:22 Temperature 98.2 F 08/09/24 10:22 Pulse Rate 81 08/09/24 10:22 Respiratory Rate 16 08/09/24 10:22 Blood Pressure 116/74 08/09/24 10:22 Pulse Oximetry 100 08/09/24 10:22 Reviewed Medical Decision Making MDM Narrative Medical decision making narrative: Take antibiotics as directed. May given ibuprofen and/or Tylenol as needed for pain and/or fever. Follow up with primary care provider in 7-10 days to have ear rechecked. Differential Diagnosis Differential Diagnosis: otitis media, otitis externa, cerumen impaction Vital Signs Vital Signs: Vital Signs Temperature 98.2 F 08/09/24 10:22 Pulse Rate 81 08/09/24 10:22 Respiratory Rate 16 08/09/24 10:22 Blood Pressure 116/74 08/09/24 10:22 Pulse Oximetry 100 08/09/24 10:22 Temperature 98.2 F 08/09/24 10:22 Pulse Rate 81 08/09/24 10:22 Respiratory Rate 16 08/09/24 10:22 Blood Pressure 116/74 08/09/24 10:22 Pulse Oximetry 100 08/09/24 10:22 Critical Care Time Critical Care Time Critical Care Time: No Discharge Plan Discharge Clinical Impression: Acute left otitis media Patient Disposition: Home, Self-Care Condition: Stable Instructions: Antibiotic Form, Ear Infection (ED) Additional Instructions: Take antibiotics as directed. May given ibuprofen and/or Tylenol as needed for pain and/or fever. Follow up with primary care provider in 7-10 days to have ear rechecked. Patient Language: Turkish Prescriptions: New amoxicillin-pot clavulanate 875-125 mg tablet 1 tablet PO Q12H 10 Days Qty: 20 0RF No Action buspirone 5 mg tablet 5 mg PO DIRECTED dextroamphetamine-amphetamine 20 mg capsule,extended release 24hr 20 mg PO DIRECTED escitalopram oxalate 5 mg tablet Follow-up/Referrals: Daylin,MAURICIO Land [Primary Care Provider] - Time of Disposition: 10:31
== END 2024-08-09 10:34 | disposition home or self-care (01) ==
PROVIDERS: Emergency Provider Nurse Practitioner; PCP Physician Assistant
DX: H66.92 Otitis media, unspecified, left ear (principal)
CPT/HCPCS: 99213; G0463

== ENCOUNTER 2024-11-13 10:41 | Emergency (ER) | payer OTHER, SELFPAY ==
[2024-11-13 10:47] VITALS: BP 111/81; PULSE 97; RESP 16; TEMP 36.8; O2SAT 97
--- OUTSIDE RECORDS SUMMARY | 2024-11-13 11:56 | XMS_ITS | CONTINUITY OF CARE DOCUMENT ---
Author Name [email or web address] Address Unknown Organization [facility] Address [address] [place] [address] [address] [place] [address] Phone [phone] Care Team Providers Care Rn Stars Name Role Phone Victor M Sullivan MD Unavailable Victor M Sullivan MD Unavailable [phone] INSURANCE PROVIDERS Payer name Policy type / Coverage type [place] red republican [place] [employer] [employer] (2) Medicaid [id number]
--- OUTSIDE RECORDS SUMMARY | 2024-11-13 12:36 | XMS_ITS | CONTINUITY OF CARE DOCUMENT ---
Author Name [email or web address] Address Unknown Organization [facility] Address [address] [place] [address] [address] [place] [address] Phone [phone] Care Team Providers Care Websphere Developer Name Role Phone Victor M Sullivan MD Unavailable [phone] Victor M Sullivan MD Unavailable [phone] INSURANCE PROVIDERS Payer name Policy type / Coverage type [place] red alliance party [place] [employer] [employer] (2) Medicaid [id number]
--- NOTE | 2024-11-13 13:11 | ED_ITS ---
HPI - Skin/Abscess/Foreign Bdy General Chief complaint: Skin/Abscess/Foreign Body Stated complaint: I think I have a perianal abscess. Time Seen by Provider: 11/13/24 10:48 Source: patient, RN notes reviewed and old records reviewed Mode of arrival: ambulatory Limitations: no limitations History of Present Illness HPI narrative: This is a 29 year old female with history of anxiety, depression, ADHD who presents for evaluation of swelling to labia. Patient reports swelling from groin to rectum for several months. She states pain seemed to worse yesterday. She reports intermittent purulent swelling. She denies pain with bowel movements. She denies nausea, vomiting. She has not been seen by OBGYN in 2 years. Related Data Home Medications ?Medication ?Instructions ?Recorded ?Confirmed ?Last Taken ?Type buspirone 5 mg tablet 5 mg PO DIRECTED 07/05/22 07/05/22 Unknown History dextroamphetamine-amphetamine ER 20 mg PO DIRECTED 07/05/22 07/05/22 Unknown History 20 mg 24hr capsule,extend release escitalopram oxalate 5 mg tablet mg 08/09/24 Unknown History Allergies Allergy/AdvReac Type Severity Reaction Status Date / Time No Known Allergies Allergy Verified 11/13/24 10:49 Review of Systems Review of Systems: All systems reviewed & are unremarkable except as noted in HPI and below PMFSH Past Medical History Medical History (Updated 11/13/24 @ 13:18 by Eleonora Tran MD) Depression Anxiety ADHD Surgical History Surgical History No significant past surgical history Family History Family History Father Hypertension Mother Hypertension Social History Social History Smoking status: Never smoker Second hand tobacco smoke exposure: No Alcohol intake: never Substance use: never Living arrangements: with family Occupation/Education: occupation Gender identity (if verbalized by the patient): Female Exam Const: General: no acute distress Nutritional Appearance: well nourished and obese Orientation/consciousness: patient oriented x3 Limitations: no limitations HENMT: Head: normal to inspection Eyes: EOM: EOMs intact bilaterally Resp: Effort & Inspection: normal respiratory effort Auscultation: clear to auscultation bilaterally Cardio: Rate: regular rate Rhythm: regular rhythm Heart sounds: no murmurs GI: GI Palp: Yes Soft to palpation, No Tenderness to palpation present (GI), No Guarding due to palpation present (GI) and No Rigid due to palpation Auscultation: normal bowel sounds Other: no hemorrhoids, no rectal swelling, no perianal tenderness or redness : General: Yes no CVA tenderness Speculum Exam - Vagina: abnormal vaginal discharge white Bimanual exam- vagina & uterus: no cervical motion tenderness Other: left posterior labial swelling, no erythema, no open drainage; wildland fire fighter specialist was present Skin: General skin exam: normal color Rashes: no rashes Wounds: no wounds Psych: Mental Status: mental status grossly normal Affect: normal affect Attitude: cooperative Course Reevaluation(s) Reevaluation #1: I Discussed with patient that it is appears she has likely bartholin cyst. She does not have erythema or increased warmth. I Discussed with patient treatment will be warm compresses, antibiotics and gynecology follow up . Date: 11/13/24 Time: 13:16 Vital Signs Vital signs: Vital Signs Temperature 98.2 F 11/13/24 10:47 Pulse Rate 97 11/13/24 10:47 Respiratory Rate 16 11/13/24 10:47 Blood Pressure 111/81 11/13/24 10:47 Pulse Oximetry 97 11/13/24 10:47 Oxygen Delivery Room Air 11/13/24 10:47 Temperature 98.2 F 11/13/24 10:47 Pulse Rate 102 H 11/13/24 13:27 Respiratory Rate 16 11/13/24 13:27 Blood Pressure 120/82 11/13/24 13:27 Pulse Oximetry 98 11/13/24 13:27 Oxygen Delivery Room Air 11/13/24 10:47 MDM - Skin/Abscess/Foreign Bdy Differential Diagnosis Differential diagnosis: Likely abscess of skin or subcutaneous tissue and other (bartholin cyst, vaginitis, perirectal abscess, labial abscess) Medical Records Attestation: I reviewed the patient's medical records. Lab Data Attestation: I reviewed the patient's lab results. Labs: Lab Results 11/13/24 11/13/24 Range/Units 13:20 13:21 POC Urine HCG, Qual Negative (Negative) C. trachomatis (PCR) Not detected (NOT DETECTE) N. gonorrhoeae (PCR) Not detected (NOT DETECTE) T. vaginalis (PCR) Not detected (NOT DETECTE) Discharge Plan Discharge Clinical Impression: Bartholin gland cyst Patient Disposition: Home Condition: Stable Instructions: Antibiotic Form, Bartholin Cyst (ED) Additional Instructions: I recommend that your call your OBGYN for further evaluation of this cyst. Perform sitz baths or warm compresses to area for 20 minutes 3 times day. Take ibuprofen for your pain. Patient Language: Azeri Prescriptions: New amoxicillin-pot clavulanate 875-125 mg tablet 1 tablet PO Q12H Qty: 14 0RF No Action buspirone 5 mg tablet 5 mg PO DIRECTED dextroamphetamine-amphetamine 20 mg capsule,extended release 24hr 20 mg PO DIRECTED escitalopram oxalate 5 mg tablet amoxicillin-pot clavulanate 875-125 mg tablet 1 tablet PO Q12H 10 Days Qty: 20 0RF Follow-up/Referrals: Daylin,MAURICIO Land [Primary Care Provider] - Victor M Wharton MD [Physician] -
[2024-11-13 13:23] LABS: BEDSIDEPREGUCG Negative (Negative)
[2024-11-13 13:27] VITALS: BP 120/82; PULSE 102; RESP 16; O2SAT 98
[2024-11-13 14:45] LABS: Trichomonas Vag PCR NOT DETECTED (NOT DETECTE)
[2024-11-13 15:08] LABS: Chlamydia trachomatis NOT DETECTED (NOT DETECTE); Neisseria gonorrhoeae PCR NOT DETECTED (NOT DETECTE)
== END 2024-11-13 13:31 | disposition home or self-care (01) ==
PROVIDERS: Emergency Provider General Practice; PCP Physician Assistant
DX: N75.0 Cyst of Bartholin's gland (principal); F41.9 Anxiety disorder, unspecified; F32.A Depression, unspecified; F90.9 Attention-deficit hyperactivity disorder, unspecified type; Z79.899 Other long term (current) drug therapy
CPT/HCPCS: 81025; 87070; 87491; 87591; 87661; 99284

== ENCOUNTER 2024-11-15 17:02 | Emergency (ER) | payer OTHER, SELFPAY ==
[2024-11-15 17:10] VITALS: BP 126/84; PULSE 105; RESP 16; TEMP 36.4; O2SAT 98
[2024-11-15 17:29] VITALS: BP 126/84; PULSE 105; RESP 20; TEMP 36.4; O2SAT 98
--- NOTE | 2024-11-15 18:11 | ED_ITS ---
HPI - Skin/Abscess/Foreign Bdy General Chief complaint: Skin/Abscess/Foreign Body Stated complaint: pilonidal cyst Time Seen by Provider: 11/15/24 18:01 History of Present Illness HPI narrative: 29-year-old female presenting to the emergency department for issues with her Bartholin's gland cyst. She was diagnosed 2 days ago and encouraged to take Tylenol, ibuprofen warm Sitz baths and follow-up with OBGYN. She returned today as she was having worsening pain. Prior to examination patient noted that she was having a sudden sensation of fluid and drainage coming from the cyst and her pain markedly improved. She is having active purulent drainage. No bleeding. No trauma or injury. Denies chance of . Related Data Home Medications ?Medication ?Instructions ?Recorded ?Confirmed ?Last Taken ?Type buspirone 5 mg tablet 5 mg PO DIRECTED 07/05/22 07/05/22 Unknown History dextroamphetamine-amphetamine ER 20 mg PO DIRECTED 07/05/22 07/05/22 Unknown History 20 mg 24hr capsule,extend release escitalopram oxalate 5 mg tablet mg 08/09/24 Unknown History Allergies Allergy/AdvReac Type Severity Reaction Status Date / Time No Known Allergies Allergy Verified 11/13/24 10:49 Review of Systems Review of Systems: As reviewed above in HPI [facility] Past Medical History Medical History Depression Anxiety ADHD Surgical History Surgical History No significant past surgical history Family History Family History Father Hypertension Mother Hypertension Social History Social History Smoking status: Never smoker Second hand tobacco smoke exposure: No Alcohol intake: never Substance use: never Living arrangements: with family Occupation/Education: occupation Gender identity (if verbalized by the patient): Female Exam Narrative: GENERAL: [Well-appearing, well-nourished, and in no acute distress.] HEAD: [Normocephalic, atraumatic.] EYES: [PERRLA and EOMI.] ENT: Nares clear, no rhinorrhea or epistaxis. Mucous membranes moist. NECK: Supple. CHEST: [Clear to auscultation. No respiratory distress.] HEART: [Regular rate and rhythm]. No murmur heard. [Normal peripheral pulses.] ABDOMEN: [Soft, nondistended], [nontender], [No rigidity or guarding] : Previous left Bartholin's gland cyst is now ruptured with purulent drainage admixed with some scant bleeding. No tenderness to palpation, no surrounding erythema. No fluctuance. EXTREMITIES: Normal range of motion. [No edema.] SKIN: Warm, dry, no rash. NEURO: [No focal deficits]. Alert and oriented [x3.] PSYCH: [Normal mood and affect.] Course Vital Signs Vital signs: Vital Signs Temperature 36.4 C L 11/15/24 17:10 Pulse Rate 105 H 11/15/24 17:10 Respiratory Rate 16 11/15/24 17:10 Blood Pressure 126/84 11/15/24 17:10 Pulse Oximetry 98 11/15/24 17:10 Oxygen Delivery Room Air 11/15/24 17:10 Temperature 36.4 C L 11/15/24 17:29 Pulse Rate 105 H 11/15/24 17:29 Respiratory Rate 20 11/15/24 17:29 Blood Pressure 126/84 11/15/24 17:29 Pulse Oximetry 98 11/15/24 17:29 Oxygen Delivery Room Air 11/15/24 17:29 MDM - Skin/Abscess/Foreign Bdy MDM Narrative Medical decision making narrative: 29-year-old female presenting with issues with her Bartholin's gland cyst. Patient seen here 2 days ago and diagnosed with that with conservative management and outpatient OBGYN follow-up. She was started on Augmentin and she has completed 2 days of this. She states her pain increased today but prior to examination she had rupture of the Bartholin's gland cyst and purulent drainage with almost immediate improvement in her pain. Chaperoned advertising writer examination reveals previous left Bartholin's gland cyst is now ruptured with purulent drainage admixed with some scant bleeding. No tenderness to palpation, no surrounding erythema. No fluctuance. Patient's pain is under control at this time after given her oxycodone p.o.. Given drainage of the cyst no other further interventions are needed at this time and she is already on antibiotics. She has OBGYN that she can follow-up with and safely discharged home at this time with prescription for tramadol. Medical Records Attestation: I reviewed the patient's medical records. Discharge Plan Discharge Clinical Impression: Bartholin's gland abscess Patient Disposition: Home Condition: Stable Instructions: Antibiotic Form, Bartholin Cyst (ED) Additional Instructions: Your cyst is open and draining at this time. Continue the Sitz bath, Tylenol, ibuprofen and finish the Augmentin. Call your OBGYN for close follow-up. Return with any developing fevers, intractable pain, recurrent severe cyst, any other concerns. We will send you home with some strong pain medicines in the event of pain recurs. Patient Language: [place] Prescriptions: New tramadol 50 mg tablet 25 mg PO Q6H PRN (Reason: pain) Qty: 10 0RF No Action buspirone 5 mg tablet 5 mg PO DIRECTED dextroamphetamine-amphetamine 20 mg capsule,extended release 24hr 20 mg PO DIRECTED escitalopram oxalate 5 mg tablet amoxicillin-pot clavulanate 875-125 mg tablet 1 tablet PO Q12H 10 Days Qty: 20 0RF amoxicillin-pot clavulanate 875-125 mg tablet 1 tablet PO Q12H Qty: 14 0RF Follow-up/Referrals: Daylin,MAURICIO Land [Primary Care Provider] - Eusebio Santiago MD [Physician] - 1 Week (Bartholin abscess) Time of Disposition: 18:18
--- OUTSIDE RECORDS SUMMARY | 2024-11-15 18:17 | XMS_ITS | CONTINUITY OF CARE DOCUMENT ---
Author Name [email or web address] Address Unknown Organization [facility] Address [id number] [place] [address] [address] [place] [address] Phone [phone] Care Team Providers Care Nursery Manager Name Role Phone Victor M Sullivan MD Unavailable Victor M Sullivan MD Unavailable [phone] INS[employer]ANCE [employer] Payer name Policy type / Coverage type [place] red republican [place] [employer] [employer] (2) Medicaid [id number]
[2024-11-15] MEDS: oxyCODONE HCL (*CRX) 5 MG TAB IR PO (18:20)
--- OUTSIDE RECORDS SUMMARY | 2024-11-15 18:21 | XMS_ITS | CONTINUITY OF CARE DOCUMENT ---
Author Name [email or web address] Address Unknown Organization [facility] Address [address] [place] [address] [address] [place] [address] Phone [phone] Care Team Providers Care Labor Training Manager Name Role Phone Victor M Sullivan MD Unavailable Victor M Sullivan MD Unavailable [phone] [employer] Payer name Policy type / Coverage type [place] red [employer] party [place] [employer] (2) Medicaid [id number]
[2024-11-15 18:29] VITALS: BP 124/77; PULSE 96; RESP 18; TEMP 36.7; O2SAT 98
== END 2024-11-15 18:33 | disposition home or self-care (01) ==
PROVIDERS: Emergency Provider Student in an Organized Health Care Education/Training Program; PCP Physician Assistant
DX: N75.1 Abscess of Bartholin's gland (principal)
CPT/HCPCS: 99283; A9270

== ENCOUNTER 2025-05-02 17:42 | Emergency (ER) | payer OTHER, SELFPAY ==
[2025-05-02 17:53] VITALS: BP 130/67; PULSE 82; RESP 20; TEMP 36.8; O2SAT 99
--- NOTE | 2025-05-02 18:04 | ED_ITS ---
HPI - Animal Bite General Chief Complaint: Animal Bite Stated Complaint: Cat Bite/Finger Time Seen by Provider: 05/02/25 18:04 Source: patient and RN notes reviewed Mode of arrival: ambulatory Limitations: dementia History of Present Illness HPI narrative: 30-year-old female presents with concern of for cat bite to the 2nd digit of her right hand. Reports she was bit 2 days ago and today the finger started swell ing, became painful and red. She denies fever, body aches, chills, sweats. complaint: animal bite Related Data Home Medications ?Medication ?Instructions ?Recorded ?Confirmed ?Last Taken ?Type escitalopram oxalate 10 mg tablet mg 05/02/25 Unknown History lisdexamfetamine 50 mg capsule mg 05/02/25 Unknown Hi story ([place]) Allergies Allergy/AdvReac Type Severity Reaction Status Date / Time No Known Allergies Allergy Verified 05/02/25 17:44 Review of Systems Review of Systems: CONSTITUTIONAL: Denies malaise, chills, sweats, or fever. EYES: Denies redness, or discharge. ENT: Denies rhinorrhea, congestion, swollen lips, swollen tongue CARDIOVASCULAR: Denies chest pain, palpitations, or edema. RESPIRATORY: Denies cough or dyspnea. GASTROINTESTINAL: Denies abdominal pain, nausea, vomiting SKIN: Reports redness, swelling, pain to the 2nd digit of the right hand. Denies purulent drainage, vesicles, bullae, numbness, pain beyond proportion MUSCULOSKELETAL: Denies joint pain or myalgia. NEUROLOGIC: Denies headache. All systems reviewed & are unremarkable except as noted in HPI and below PMFSH Past Medical History Medical History Depression Anxiety ADHD Surgical History Surgical History No significant past surgical history Family History Family History Father Hypertension Mother Hypertension Social History Social History Smoking status: Never smoker Second hand tobacco smoke exposure: No Alcohol intake: never Substance use: never Living arrangements: with family Occupation/Education: occupation Gender identity (if verbalized by the patient): Female Comments At time of signature, agree with nursing past medical, surgical, social and family history. There is no relevant family history pertinent to the presenting complaint Exam Narrative: GENERAL: Well-appearing, well-nourished, and in no acute distress. HEAD: Normocephalic, atraumatic. EYES: PERRLA, conjunctivae clear ENT: Mucous membranes moist. NECK: Supple. No lymphadenopathy CHEST: Clear to auscultation. No respiratory distress. HEART: Regular rate and rhythm. SKIN: Warm, dry. Erythema, induration, tenderness, warmth with sharp margins to the distal 2nd digit of the right hand. No vesicles, bullae, necrosis, ecc hymosis, crepitus noted. NEURO: Alert and oriented x3. PSYCH: Normal mood and affect Course Course Emergency Course: Patient is aware of diagnosis, understands and agrees to treatment plan. Anticipatory guidance given. Patient agrees to follow-up as directed and is aware of reasons to seek care at the emergency department. Portions of this record may have been created with voice recognition software Level of Care: Express Care Visit Vital Signs Vital signs: Vital Signs Temperature 98.3 F 05/02/25 17:53 Pulse Rate 82 05/02/25 17:53 Respiratory Rate 20 05/02/25 17:53 Blood Pressure 130/67 05/02/25 17:53 Pulse Oximetry 99 05/02/25 17:53 Oxygen Delivery Room Air 05/02/25 17:53 Temperature 98.3 F 05/02/25 17:53 Pulse Rate 82 05/02/25 17:53 Respiratory Rate 20 05/02/25 17:53 Blood Pressure 130/67 05/02/25 17:53 Pulse Oximetry 99 05/02/25 17:53 Oxygen Delivery Room Air 05/02/25 17:53 Reviewed. Critical Care Time Critical Care Time Critical Care Time: No Discharge Plan Discharge Clinical Impression: Cat bite Patient Disposition: Home Condition: Stable Instructions: Antibiotic Form, Animal Bite (ED) Additional Instructions: Please follow up with your Primary Care Doctor within 48-72 hours - call for an appointment. Rest and elevate affected area; apply moist heat 3-4 times daily for 10-15 minutes. Take Motrin 600mg every 8 hours with food for pain. Please take Antibiotics as directed. If you experience any worsening redness, swelling, streaking (red lines), fever or chills please go to the ER Patient Language: Slovenian Prescriptions: New amoxicillin-pot clavulanate 875-125 mg tablet 1 tablet PO Q12H 10 Days Qty: 20 0RF No Action escitalopram oxalate 10 mg tablet lisdexamfetamine [Vyvanse] 50 mg capsule Follow-up/Referrals: Daylin,MAURICIO Land [Primary Care Provider, Unknown] Stand Alone Forms: Work/School Release IP Time of Disposition: 18:08
== END 2025-05-02 18:10 | disposition home or self-care (01) ==
PROVIDERS: Emergency Provider Nurse Practitioner; PCP Physician Assistant
DX: S61.451A Open bite of right hand, initial encounter (principal); W55.01XA Bitten by cat, initial encounter; Z79.899 Other long term (current) drug therapy
CPT/HCPCS: 99213; G0463